=== PATIENT | female | born 1995 ===

== ENCOUNTER 2020-02-21 16:36 | Emergency (ER) | payer SELFPAY ==
--- NOTE | 2020-02-21 16:58 | Emergency Department Report ---
HPI - General Chief Complaint: Altered Mental Status Time Seen by Provider: 02/21/20 16:48 - HPI HPI: 25-year-old female presents to the emergency department for altered mental status. The patient is currently unresponsive and therefore is a poor histori an. All of the information thus far has been obtained from the patient's , Shalom Gerard ([phone]). Mr. Gerard says that the patient told him yesterday that she had an episode of vomiting. Then today the patient was witnessed having an episode of nausea with vomiting and afterwards became progressively less responsive. This is the point in which she was brought into the emergency department. She took 600 mg of bupropion throughout the day today. Her normal dose, for depression, is 450 mg. She takes them in 150 mg intervals and accidentally took 1 extra pill. She has not exhibited any signs to her that she was trying to harm herself. Most of today she just told him that she "feels off." She does not have a primary care physician. She does not smoke cigarettes or use any illicit drugs. She rarely ever drinks alcohol. ED Past Medical Hx - Past Medical History Previous Medical History?: No - Surgical History Past Surgical History?: No ED Review of Systems ROS: Stated complaint: WEAKNESS Other details as noted in HPI Comment: Unobtainable due to pts medical conditions Physical Exam - Physical Exam Vital Signs: Vital Signs 02/21/20 02/21/20 16:37 16:52 Temperature 97.8 F Pulse Rate 84 79 Respiratory 18 14 Rate Blood Pressure 149/103 140/109 [Left] O2 Sat by Pulse 100 100 Oximetry Physical Exam: GENERAL: Patient appears very fatigued and frail. HENT: Normocephalic. Atraumatic. Patient has moist mucous membranes. EYES: Extraocular motions are intact. Pupils equal reactive to light bilaterally. NECK: Supple. Trachea is midline. CHEST/LUNGS: Clear to auscultation. There is no respiratory distress noted. HEART/CARDIOVASCULAR: Regular. There is no tachycardia. There is no murmur. ABDOMEN: Abdomen is soft, nontender. Patient has normal bowel sounds. SKIN: Skin is warm and dry. NEURO: Patient is very sleepy but is arousable. Patient does answer questions and appears oriented but also appears weak. Cranial nerves II through XII grossly intact. MUSCULOSKELETAL: There is no tenderness or deformity. There is no evidence of acute injury. ED Course Vital Signs 02/21/20 02/21/20 16:37 16:52 Temperature 97.8 F Pulse Rate 84 79 Respiratory 18 14 Rate Blood Pressure 149/103 140/109 [Left] O2 Sat by Pulse 100 100 Oximetry - Reevaluation(s) Reevaluation #1: The patient was reevaluated about 1 hour into her ED course and appears greatly improved. She is sitting up on the side of the bed. She is awake, alert, oriented and no longer appears frail or weak. She is able to display intact cranial nerves II through XII. She has no focal, motor or sensory deficits. 02/21/20 21:06 ED Medical Decision Making - Lab Data Result diagrams: 02/21/20 16:49 02/21/20 16:49 - EKG Data -: EKG Interpreted by Me EKG shows normal: sinus rhythm, axis, intervals, QRS complexes, ST-T waves Rate: normal - EKG Data When compared to previous EKG there are: previous EKG unavailable Interpretation: normal EKG - Radiology Data Radiology results: report reviewed, image reviewed interpreted by me: Chest x-ray does not show any acute process. There are no pleural effusions, obvious pneumonia and there is no pneumothorax. CT BRAIN: 02/21/2020 INDICATION / CLINICAL INFORMATION: Altered mental status. COMPARISON: None available. FINDINGS: BRAIN/INTRACRANIAL STRUCTURES: Unenhanced CT images of the brain demonstrate no evidence of acute intracranial abnormality. Ventricles and sulci are normal in size and shape. There is no evidence of hemorrhage or mass. There are no abnormal extra-axial fluid collections. EXTRACRANIAL STRUCTURES: Unremarkable. IMPRESSION: Negative unenhanced CT of the brain. - Medical Decision Making This patient initially came into the emergency department essentially unresponsive. When she got back to room 22 the patient would open her eyes and converse but appeared weak. However she was oriented, AAO x3 at this point. CT scan of the head without contrast did not show any bleed, shift, mass, ischemia, or any other acute process. Chest x-ray did not show any pneumonia, pleural effusions or pneumothorax, or any other acute process. Patient's labs were unremarkable including CBC, metabolic panel, ammonia, TSH, blood alcohol level, urine drug screen. She was given some IV fluid resuscitation. As per the reevaluation section, the patient was much more awake and alert about 1 hour into her ED course. During her ED course the patient was seen ambulatory around the emergency department and both appears and feels stable. EKG did not show any signs of ST elevation [place], ischemia or dysrhythmia. Her vital signs have been stable throughout her ED course including being afebrile. For all these reasons the patient appears safe for discharge home at this time. She has been instructed to follow-up with primary care and to return to the emergency department with any worsening of her symptoms or any acute distress. Critical Care Time: No Critical care attestation.: If time is entered above; I have spent that time in minutes in the direct care of this critically ill patient, excluding procedure time. ED Disposition Clinical Impression: Unresponsive episode Tinnitus Qualifiers: Laterality: unspecified laterality Qualified Code(s): H93.19 - Tinnitus, unspecified ear Disposition: DC-01 TO HOME OR SELFCARE Is pt being admited?: No Condition: Stable Instructions: Altered Mental Status (ED) Additional Instructions: Please follow-up with a primary care physician in the next few days and I will give you some referrals for local primary care physicians and clinics. Return to the emergency department with any further unresponsive episodes, development of chest pain or shortness of breath, worsening of your symptoms, or with any acute distress. I have also given you a referral for a local ENT, Dr. Neo Gaviria, to follow-up regarding the ringing in your ears. Referrals: PRIMARY MD BIANCA [Primary Care Provider] - 2-3 Days ASUNCION FALCON MD [Staff Physician] - 2-3 Days RADHA CONLEY MD [Staff Physician] - 2-3 Days [facility] [Provider Group] - 2-3 Days JOSE ANTONIO HERNANDEZ MD [Staff Physician] - 2-3 Days Time of Disposition: 19:27
[2020-02-21 17:26] LABS: Basophils % (Auto) 0.3 % (0.0-1.8); Eosinophils # (Auto) 0.1 K/mm3 (0.0-0.4); Eosinophils % (Auto) 0.8 % (0.0-4.3); Hemoglobin 12.4 gm/dl (10.1-14.3); Lymphocytes # (Auto) 1.9 K/mm3 (1.2-5.4); Lymphocytes % (Auto) 15.1 % (13.4-35.0); Mean Corpuscular HGB Conc 34 % (30-34); Mean Corpuscular Volume 85 fl (79-97); Monocytes # (Auto) 1.1 K/mm3 (0.0-0.8); Monocytes % (Auto) 8.5 % (0.0-7.3); Platelet Count 374 K/mm3 (140-440); Red Blood Count 4.36 M/mm3 (3.65-5.03); Red Cell Distribution Width 13.8 % (13.2-15.2)
[2020-02-21 17:37] LABS: INR 0.95 (0.87-1.13)
[2020-02-21 17:45] LABS: Alanine Aminotransferase 14 units/L (7-56); Albumin 4.3 g/dL (3.9-5); BUN/Creatinine Ratio 17; Blood Urea Nitrogen 10 mg/dL (7-17); Calcium 9.5 mg/dL (8.4-10.2); Hemolysis Index 10
[2020-02-21 17:47] LABS: Bacteria,Urine 4+ /HPF (Negative); Bilirubin,Urine NEG (Negative); Blood,Urine NEG (Negative); Color,Urine Yellow (Yellow); Hyaline Casts,Urine 2 /LPF; Mucus,Urine FEW /HPF; Protein,Urine <15 mg/dL mg/dL (Negative); Urobilinogen,Urine < 2.0 mg/dL (<2.0)
[2020-02-21 17:55] LABS: Amphetamine Screen,Urine PRESUMPTIVE NEGATIVE; Benzodiazepines Screen,Urine PRESUMPTIVE NEGATIVE; Cannabinoid Screen,Urine PRESUMPTIVE NEGATIVE; Cocaine Screen,Urine PRESUMPTIVE NEGATIVE; Methadone Screen,Urine PRESUMPTIVE NEGATIVE; Opiate Screen,Urine PRESUMPTIVE NEGATIVE
--- NOTE | 2020-02-21 18:23 | Cat Scan Report ---
CT BRAIN: 02/21/2020 INDICATION / CLINICAL INFORMATION: Altered mental status. COMPARISON: None available. FINDINGS: BRAIN/INTRACRANIAL STRUCTURES: Unenhanced CT images of the brain demonstrate no evidence of acute int racranial abnormality. Ventricles and sulci are normal in size and shape. There is no evidence of hemorrhage or mass. There are no abnormal extra-axial fluid collections. EXTRACRANIAL STRUCTURES: Unremarkable. IMPRESSION: Negative unenhanced CT of the brain. All CT scans at this location are performed using dose reduction to ALARA by means of automated expos ure control. Signer Name: Jaime Conde MD Signed: 02/21/2020 6:19 PM Workstation Name: [id number]
--- NOTE | 2020-02-21 18:25 | XRay Report ---
CHEST 1 VIEW INDICATION: Altered mental status. COMPARISON: none FINDINGS: SUPPORT DEVICES: None. HEART / MEDIASTINUM: No significant abnormality. LUNGS / PLEURA: No significant pulmonary or pleural abnormality. No pneumothorax. ADDITIONAL FINDINGS: IMPRESSION: 1. No acute cardiopulmonary disease Signer Name: Vamsi Price MD Signed: 02/21/2020 6:20 PM Workstation Name: [id number]
[2020-02-21] MEDS: SODIUM CHLORIDE 0.9% 1000 ML 1,000 ML IV ONE (18:35)
[2020-02-21] MEDS: KETOROLAC 30 MG/1 ML INJ IV ONE (18:50)
[2020-02-21 19:23] VITALS: BP 112/74
== END 2020-02-21 19:55 | disposition home or self-care (01) ==
LOC: ED 16:36
DX: R46.4 Slowness and poor responsiveness (principal); H93.19 Tinnitus, unspecified ear
CPT/HCPCS: 36415; 70450; 71045; 80053; 80307; 81001; 82140; 84443; 84484; 84703; 85025; 85610; 93005; 96361; 96374; 99285; J1885; J7030; 80320; G0480